=== PATIENT | male | born 1970 | race Caucasian/White ===

== ENCOUNTER → 2024-07-09 06:27 | Day surgery (SDC) | payer BC, SELFPAY | LOC: GI 06:27 | PROVIDERS: ATTENDING PHYSICIAN Internal Medicine Gastroenterology | DX: Z12.11 Encounter for screening for malignant neoplasm of colon (principal); K57.30 Diverticulosis of large intestine without perforation or abscess without bleeding; Z86.010 Personal history of colon polyps; K52.9 Noninfective gastroenteritis and colitis, unspecified; K63.5 Polyp of colon; K63.89 Other specified diseases of intestine | CPT/HCPCS: 45385; 45380; 88305 ==

== ENCOUNTER → 2024-07-10 14:25 | Outpatient (REF) | payer BC, SELFPAY | LOC: RAD 14:25 | PROVIDERS: ATTENDING PHYSICIAN Family Medicine | DX: M25.532 Pain in left wrist (principal) | CPT/HCPCS: 73110 ==